=== PATIENT | female | born 1990 | race Two or more races ===

== ENCOUNTER → 2024-12-04 | Outpatient (CLI) | payer BC, SELFPAY ==
[2024-12-04 16:52] LABS: Beta HCG,Quantitative 9518 mIU/mL (<5.0)
== END | disposition home or self-care (01) ==
LOC: COPL 14:49
PROVIDERS: PCP Physician Assistant; Referring Provider Physician Assistant; Visit Provider Physician Assistant
DX: Z32.01 Encounter for pregnancy test, result positive (principal)
CPT/HCPCS: 36415; 84702

== ENCOUNTER → 2024-12-07 | Outpatient (CLI) | payer BC, SELFPAY ==
[2024-12-07 12:27] LABS: HCG Titer if Positive Positive
[2024-12-07 13:19] LABS: Beta HCG,Quantitative 20706 mIU/mL (<5.0)
== END | disposition home or self-care (01) ==
LOC: COPL 11:31
PROVIDERS: PCP Physician Assistant; Referring Provider Physician Assistant; Visit Provider Physician Assistant
DX: Z32.01 Encounter for pregnancy test, result positive (principal)
CPT/HCPCS: 36415; 84702; 84703

== ENCOUNTER → 2024-12-12 | Outpatient (CLI) | payer BC, SELFPAY ==
[2024-12-12 13:32] LABS: HCG Titer if Positive Positive
[2024-12-12 14:31] LABS: Beta HCG,Quantitative 46591 mIU/mL (<5.0)
== END | disposition home or self-care (01) ==
PROVIDERS: PCP Family Medicine; Referring Provider Physician Assistant; Visit Provider Physician Assistant
DX: O00.01 Abdominal pregnancy with intrauterine pregnancy (principal)
CPT/HCPCS: 36415; 84702; 84703

== ENCOUNTER 2025-01-03 13:45 | Emergency (ER) | payer BC, SELFPAY ==
--- NOTE | 2025-01-03 | XR_ITS ---
Examination: MRI cervical spine without intravenous contrast Date and time of exam: January 03, 2025 1649 hours INDICATIONS: Patient fell 3 days ago with injury to the neck, neck pain Technique: Multiple axial and sagittal sections of the cervical spine to been obtained. T2 weighted sagittal sections, TR 3, 270, TE 117 T1-weighted sagittal sections, TR 500, TE 11 T1-weighted axial sections, TR 607, TE 12, axial sections TR 18, TE 27 and T2 weighted transverse sections, TR 3920, TE 122. Findings: Adequate alignment cervical vertebral bodies No acute cervical fracture Intact odontoid. Diffuse cervical disc desiccation No localized enlargement cervical cord No syrinx cavity C2-C3 no disc protrusion C3-C4 no disc protrusion C4-C5 no disc protrusion C5-C6 2 mm central left paracentral disc bulge C6-C7 no disc protrusion C7-T1 no disc protrusion IMPRESSION: No cervical fracture. C5-C6 2 mm central left paracentral disc bulge
--- NOTE | 2025-01-03 | XR_ITS ---
Examination: MRI brain without intravenous contrast. Date and time of exam: January 03, 2025 1625 hours INDICATIONS: Right-sided headaches beginning 3 weeks ago Technique: Multiple axial and sagittal images of the brain obtained. Siemens high-resolution 1.5 Lorelei short bore scanners utilized. Sagittal sections, T1-weighted, TR 500, TE 14, are performed. Axial sections proton-density and T2-weighted have been obtained. Inversion recovery axial images, TR 9, 260, TE 111, TI 2500. Diffusion weighted images, axial sections, TR 4800, TE 128, B value 1000 Axial sections, ADC map, TR 4800, TE 128 Findings: Enlargement of the sella turcica is not present. The optic chiasm and infundibular are not remarkable. Prepontine and interpeduncular cisterns are not enlarged. There is no localized enlargement of the medulla or myranda. Fourth ventricle and cerebellar tonsils appear normal in position. No subacute area of hemorrhage density is seen. Mass in the cerebellopontine angle region is not evident. Globes symmetrical. Orbital musculature including medial lateral rectus muscles do not exhibit abnormality. Diffusion-weighted images demonstrate no focus of restricted diffusion. Increased white matter signal not seen Mass effect upon the ventricular system is not identified. Impression: Negative for acute hemorrhage, mass effect or midline shift No acute infarct No MR findings diagnostic for demyelinating disease Mild chronic frontal ethmoid sinusitis
[2025-01-03 13:46] VITALS: BMI 23.6
[2025-01-03 13:57] VITALS: BP 126/79; PULSE 70; RESP 18; TEMP 36.8; O2SAT 99
--- NOTE | 2025-01-03 14:29 | PD.EDRME ---
Rapid Medical Screening Exam [facility] Arrival date/time: 01/03/25 13:45 34-year-old female with no known medical history presents to the emergency room with a chief complaint of neck pain and a headache x 3 days. Patient is currently 6 weeks and states she had a ground-level fall 3 days ago and her symptoms have progressively gotten worse. I have greeted and performed a focused initial assessment of this patient. A comprehensive ED assessment and evaluation of the patient, analysis of all test results, and completion of the medical decision making process will be conducted by additional ED providers. Chief Complaint: Head Injury Time Seen by Provider: 01/03/25 13:55 Vital signs: Vital Signs Temperature 98.3 F 01/03/25 13:57 Pulse Rate 70 01/03/25 13:57 Respiratory Rate 18 01/03/25 13:57 Blood Pressure 126/79 01/03/25 13:57 Pulse Oximetry (%) 99 01/03/25 13:57 Oxygen Delivery Method Room Air 01/03/25 13:57 Vital signs reviewed by provider: Yes
--- NOTE | 2025-01-03 18:15 | EDNOTE_ITS ---
ED Head Injury RME/HPI General Chief complaint: Head Injury Stated complaint: HEAD PAIN X3DAY Time Seen by Provider: 01/03/25 13:55 Arrival date/time: 01/03/25 13:45 RME / HPI RME / HPI Narrative: 34-year-old female with no known medical history presents to the emergency room with a chief complaint of neck pain and a headache x 3 days. Patient is currently 6 weeks and states she had a ground-level fall 3 days ago and her symptoms have progressively gotten worse. Patient denies any upper or lower extremity weakness denies any radiation of pain to the shoulder. Patient is ambulatory. Related Data Previous Rx's ?Medication ?Instructions ?Recorded methocarbamol 750 mg tablet 750 mg PO QID #20 tabs 10/24 (Robaxin-750) Allergies Allergy/AdvReac Type Severity Reaction Status Date / Time sulfamethoxazole (From Allergy Vomiting Verified 01/03/25 13:51 Bactrim) trimethoprim (From Bactrim) Allergy Vomiting Verified 01/03/25 13:51 Review of Systems Review of Systems Narrative Review of Systems: Review of system reviewed and within normal limits except mentioned in HPI Course Quality Measures none Orders Category Date Time Status MRI Screening NOW Care 01/03/25 14:28 Completed MR cervical spine wo con Stat Exams 01/03/25 Completed MR head/brain wo con Stat Exams 01/03/25 Completed Vital Signs Vital signs: Vital Signs Temperature 98.3 F 01/03/25 13:57 Pulse Rate 70 01/03/25 13:57 Respiratory Rate 18 01/03/25 13:57 Blood Pressure 126/79 01/03/25 13:57 Pulse Oximetry (%) 99 01/03/25 13:57 Oxygen Delivery Method Room Air 01/03/25 13:57 Head Injury MDM Narrative [facility] Narrative:: 34-year-old female with no known medical history presents to the emergency room with a chief complaint of neck pain and a headache x 3 days. Patient is currently 6 weeks and states she had a ground-level fall 3 days ago and her symptoms have progressively gotten worse. Patient denies any upper or lower extremity weakness denies any radiation of pain to the shoulder. Patient is ambulatory. MRI of the head came back unremarkable MRI of the cervical spine showed C5-C6 disc bulging otherwise unremarkable. Results discussed with the patient patient was also given a copy of her MRIs. Patient was advised to follow-up with PCP and for referral to spine surgeon. Patient agrees with the plan. Patient is ambulatory no distal neurologic deficit noted. Patient data External records reviewed:: None Clinical information provided by:: patient Social determinants that could affect healthcare access:: none Patient has the following chronic illnesses:: None How is presenting disease/condition affected by chronic disease/condition?: no chronic disease Evaluation data The following diagnostics were reviewed and interpreted by me:: radiology exam(s) Lab and/or radiology exams considered but not ordered:: None Interpretation Summary: She resulted negative Medications / Prescriptions Medications or Prescriptions considered but not ordered:: None Medication administrations:: None Consultations Consultation(s) initiated? (list below): No Diagnosis Differential diagnosis head injury: closed head injury and other (Neck pain, C5- C6 disc bulging) Most likely diagnosis given after review of the tests above:: C5-C6 disc bulging, neck pain, status post fall, Admission Indicated Admission indicated?: not indicated Admission Request Was there a request for admission?: No Disposition Plan Disposition Plan: Discharge Discharge Attestation Discharge Attestation: The patient was given an opportunity to ask questions and understood the discharge instructions. Discharge instructions specifically effects, indications for sooner follow up or return to the emergency department, and the expected course of current diagnosis. Patient condition: Stable Discharge Plan Plan Patient Disposition: HOME (Self Care) Discharge Disposition comment: stable Prescriptions/Referrals Prescriptions/Med Rec: No Action methocarbamol [Robaxin-750] 750 mg tablet 750 mg PO QID Qty: 20 0RF Referrals: Kristopher Harrison MD [Primary Care Provider] - In 1 week Problem List Clinical Impression: Bulge of cervical disc without myelopathy, Neck pain, Currently Patient/Caregiver Discharge Instructions Discharge Activity: activity as tolerated Education Materials: Cervical Disk Problems Additional Instructions: Thank you for the opportunity for serving you today. You are stable for discharged . You are advised to: Follow-up with your PCP in 1 to 2 days and ask for referral to spine surgeon Return to ED for worsening of symptoms Increase oral fluids You can take Tylenol as needed for pain Print Language: Yakut Stand Alone Forms: Leslie Award Info., Patient Portal Info Letter ELISSA Supervising Physician ELISSA Supervising Physician: MD Iza
== END 2025-01-03 18:21 | disposition home or self-care (01) ==
PROVIDERS: Emergency Provider Emergency Medicine; PCP Family Medicine
DX: O9A.211 Injury, poisoning and certain other consequences of external causes complicating pregnancy, first trimester (principal); S09.90XA Unspecified injury of head, initial encounter; M50.322 Other cervical disc degeneration at C5-C6 level; W18.30XA Fall on same level, unspecified, initial encounter; Z3A.01 Less than 8 weeks gestation of pregnancy
CPT/HCPCS: 70551; 72141; 99284

== ENCOUNTER 2025-01-16 15:23 | Outpatient (AMB) | payer BC, SELFPAY ==
[2025-01-16 15:52] VITALS: BP 125/76; PULSE 89; RESP 18; TEMP 37.1; O2SAT 97; BMI 25.2
--- NOTE | 2025-01-16 15:52 | AMB.GYNCLNOT ---
Vital Signs 01/16/25 15:52 Height 1.57 m Height Method Stated Weight 62.369 kg Weight Measurement Method Standing Scale BMI 25.2 BP 125/76 Blood Pressure Source Automatic Cuff Blood Pressure Location Right Upper Arm Position Sitting Respiration 18 Pulse 89 Pulse Source Monitor Temp 98.8 F Temp Source Temporal Artery Scan Pulse Oximetry (%) 97 Oxygen Delivery Method Room Air Allergies/Home Meds Allergies & Medications Allergies sulfamethoxazole (From Bactrim) Allergy (Verified 01/16/25 15:53) Vomiting trimethoprim (From Bactrim) Allergy (Verified 01/16/25 15:53) Vomiting Intake Visit Data Collection New Patient or Established: Established Patient (seen at [facility] within 3 years) Reason for Visit:: New OB Do You Feel Safe at Home: Yes Authorities Contacted: N/A PCP or OBGYN visit in last 3 months: Yes Pain Present Currently: No Smoking Status Smoking Status: Never smoker 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 Had epidural. 7 lbs 8 0z, Breast fed x 2 months Has anxiety, migraines, a hx of herpes and anemia Questionnaires Covid-19 Vaccine Questionnaire Has patient been vacinated for Covid-19 Have you been vacinated for Covid-19: Yes PHQ-9 PHQ-2 Over the last 2 weeks, how often have you been bothered by any of the following problems? 1. Little interest or pleasure in doing things: not at all 2. Feeling down, depressed, or hopeless: not at all Total score: 0 Depression screen completed yes Social History Living Situation History Marital Status: (Remarried. 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 from a previous relationship Tobacco History Smoking Status: Never smoker Alcohol History Alcohol Intake: Never Domestic Abuse History Do You Feel Safe at Home: Yes History of Present Illness HPI Narrative The patient is a 34 y/o who drove from [place] to see me. She is present with her new . She was scheduled as amenorrhea but knows she is and is almost 12 weeks. She reports fatigue, mild nausea and breast tenderness. Exam General General Appearance: alert, in no apparent distress, comfortable, cooperative, healthy appearing and well groomed Neck Neck exam: Present normal inspection, full ROM and trachea midline Chest Chest inspection: Present normal inspection and symmetric chest wall rise Resp Respiratory exam: Present normal lung sounds bilaterally Card Cardiovascular exam: Present regular rate, normal rhythm and normal heart sounds Abdominal Abdominal exam: Present soft and normal bowel sounds External exam: Present normal external exam Psych Psychiatric exam: Present normal affect and normal mood Skin Skin exam: Present warm, dry, intact and normal color Office Procedures OB Clinic LOC & Office Proc's Nursing/Assessment Patient Status: Initial/New Patient OB Clinic Nursing Assessment: BP Monitoring, Medication Reconciliation, Update PMH in EMR and Vital Signs OB Clinic Coordination of Care: Complex Care and Chronic Disease 1-5, Education Complex Pt/Fam, Consent,records obtained, informed consent, Lab and Imaging orders and Staff clarify orders New Patient Charge New Patient Point Assignment: 1119 New Patient Point Charge: 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 (2) Currently : Status: Inactive Qualifiers: Weeks of gestation: 12 weeks Qualified Code(s): Z3A.12 - 12 weeks gestation of (3) AMA (advanced maternal age) multigravida 35+: Status: Acute Qualifiers: Trimester: first trimester Qualified Code(s): O09.521 - Supervision of elderly multigravida, first trimester Assessment and Plan: For Level II US DR Ivan Altamirano Additional Plan Follow Up: 4 Weeks OB Ultrasound Indication Indication: Size, dates, viability OB Ultrasound Ultrasound technique: transvaginal Gestational sac assessment: Presence, location, size, shape: Live IUP with a CRL of 4.89 cm corresponding to 11 5/7 weeks and FHTs of 184
== END 2025-01-16 16:48 | disposition home or self-care (01) ==
PROVIDERS: PCP Family Medicine; Referring Provider Family Medicine; Supervising Provider Obstetrics & Gynecology; Visit Provider Obstetrics & Gynecology
DX: O09.521 Supervision of elderly multigravida, first trimester (principal); Z3A.11 11 weeks gestation of pregnancy
CPT/HCPCS: 99204; G0463

== ENCOUNTER 2025-02-18 15:21 | Outpatient (AMB) | payer BC, SELFPAY ==
[2025-02-18 15:43] VITALS: BP 115/69; PULSE 81; RESP 17; TEMP 36.8; O2SAT 98; BMI 26.2
--- NOTE | 2025-02-18 15:43 | OBCLNT_ITS ---
Vital Signs 02/18/25 15:43 Height 1.57 m Height Method Stated Weight 64.637 kg Weight Measurement Method Standing Scale BMI 26.2 BP 115/69 Blood Pressure Source Automatic Cuff Blood Pressure Location Right Upper Arm Position Sitting Respiration 17 Pulse 81 Pulse Source Monitor Temp 98.2 F Temp Source Temporal Artery Scan Pulse Oximetry (%) 98 Oxygen Delivery Method Room Air Allergies/Home Meds Allergies & Medications Allergies sulfamethoxazole (From Bactrim) Allergy (Verified 02/18/25 15:44) Vomiting trimethoprim (From Bactrim) Allergy (Verified 02/18/25 15:44) Vomiting Medication Reconciliation No Known Home Medications 02/18/25 [History Confirmed 02/18/25] Intake Visit Data Collection New Patient or Established: Established Patient (seen at [facility] within 3 years) Reason for Visit:: OBC Seen by Clinical Staff ONLY (RN/MA): No 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 1. Little interest or pleasure in doing things: not at all 2. Feeling down, depressed, or hopeless: not at all Total score: 0 PHQ-9 3. Trouble falling or staying asleep, or sleeping too much: Not at all 4. Feeling tired or having little energy: Not at all 5. Poor appetite or overeating: Not at all 6. Feeling bad about yourself - or that you are a failure or have let yourself or your family down: Not at all 7. Trouble concentrating on things, such as reading the newspaper or watching television: Not at all 8. Moving or speaking so slowly that other people could have noticed? - Or the opposite - being so fidgety or restless that you have been moving around a lot more than usual: not at all 9. Thoughts that you would be better off or of hurting yourself in some way: Not at all Total score: 0 If you checked off any problems, how difficult have these problems made it for you to do your work, take care of things at home, or get along with other people?: not difficult at all Source: Developed by Drs. Flaquito Auguste, Ruby Edwards, Ramin Rubin and colleagues, with an educational sharron from [employer]. 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. 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 She has a new father the baby this . She presents as a return OB and has no complaints. Care OB Visit Log OB Flowsheet Initial Weight: Not Recorded Date -?-?-?-?-?-?-?-?-?-?-?-?- EGA Weight BP Alb Glu CTX Pres Fundal ht FHR Mov Dilation Station Effacement Hx Notes Visit Note 02/18/25 -?-?-?-?-?-?-?-?-?-?-?-?- 16w 3d 64.637 kg 115/69 145 absent No vaginal bleeding no cramping. Patient requests a note to not be in the back with clients. Rising for NIPT. Order level 2 ultrasound. TERRY Calculator Estimated Delivery Date Method Current WG Current Estimate 08/02/25 Ultrasound #1 16w 3d Other Estimates 08/08/25 LMP (Certain) 15w 4d Comments: Patient has not done labs yet. Expected Delivery Route/Plan LMP history of . Anticipate . Specific Issue/Plans AMA ordered NIPT and level 2 ultrasound Office Procedures OB Clinic LOC & Office Proc's Nursing/Assessment Patient Status: Established Patient OB Clinic Nursing Assessment: Medication Reconciliation, Update PMH in EMR and Vital Signs OB Clinic Coordination of Care: Complex Care and Chronic Disease 1-5, Consent,records obtained, informed consent, Education Simp Pt/Fam and Staff clarify orders Special Needs: Heart tones Established Patient Charge Established Patient Point Assignment: 115 Established Patient Point Charge: EP Level 3 (80-115) Assessment & Plan Diagnosis / Problem List (1) : Status: Acute Qualifiers: Weeks of gestation: 15 weeks Qualified Code(s): Z3A.15 - 15 weeks gestation of (2) AMA (advanced maternal age) multigravida 35+: Status: Acute Qualifiers: Trimester: first trimester Qualified Code(s): O09.521 - Supervision of elderly multigravida, first trimester Assessment and Plan: Authorizing for NIPT. Level [address] Love
== END 2025-02-18 16:29 | disposition home or self-care (01) ==
LOC: HODSOBC 15:21
PROVIDERS: PCP Obstetrics & Gynecology; Referring Provider Obstetrics & Gynecology; Supervising Provider Obstetrics & Gynecology; Visit Provider Obstetrics & Gynecology
DX: O09.522 Supervision of elderly multigravida, second trimester (principal); Z3A.16 16 weeks gestation of pregnancy; Z88.1 Allergy status to other antibiotic agents; Z88.2 Allergy status to sulfonamides
CPT/HCPCS: 99213; G0463

== ENCOUNTER 2025-03-22 10:27 | Outpatient (AMB) | payer BC, SELFPAY ==
[2025-03-22 10:40] VITALS: BP 118/70; PULSE 83; RESP 17; TEMP 36.8; O2SAT 97; BMI 27.8
--- NOTE | 2025-03-22 10:40 | AMB.OBVISIT ---
Vital Signs 03/22/25 10:40 Height 1.57 m Height Method Measured Weight 68.663 kg Weight Measurement Method Standing Scale BMI 27.8 BP 118/70 Blood Pressure Source Automatic Cuff Blood Pressure Location Right Upper Arm Position Sitting Respiration 17 Pulse 83 Pulse Source Monitor Temp 98.3 F Temp Source Temporal Artery Scan Pulse Oximetry (%) 97 Oxygen Delivery Method Room Air Allergies/Home Meds Allergies & Medications Allergies sulfamethoxazole (From Bactrim) Allergy (Verified 03/22/25 10:41) Vomiting trimethoprim (From Bactrim) Allergy (Verified 03/22/25 10:41) Vomiting Medication Reconciliation No Known Home Medications 02/18/25 [History Confirmed 03/22/25] Intake Visit Data Collection New Patient or Established: Established Patient (seen at [facility] within 3 years) Reason for Visit:: OBC Consent obtained for Telemed Visit: No Seen by Clinical Staff ONLY (RN/MA): No Slumber Room Attendant Required: No Do You Feel Safe at Home: Yes Authorities Contacted: N/A PCP or OBGYN visit in last 3 months: Yes Date of Last PCP or OBGYN visit: 02/18/25 Hx Now: Yes Are you currently on any form of Control: No Pain Present Currently: No Pain Scale Used: Burton-Vee/Numerical Pain scale:: 0 Smoking Status Smoking Status: Never smoker Questionnaires Covid-19 Vaccine Questionnaire Has patient been vacinated for Covid-19 Have you been vacinated for Covid-19: Yes PHQ-9 PHQ-2 Over the last 2 weeks, how often have you been bothered by any of the following problems? 1. Little interest or pleasure in doing things: not at all PHQ-9 8. Moving or speaking so slowly that other people could have noticed? - Or the opposite - being so fidgety or restless that you have been moving around a lot more than usual: not at all Source: Developed by Drs. Flaquito Auguste, Ruby Edwards, Ramin Rubin and colleagues, with an educational sharron from [employer]. 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 Patient requests a note to not be in the back with clients. Rising for NIPT. Order level 2 ultrasound. 03/22/25 <del>?</del> 21w 0d 68.663 kg (+5662.545 g) 118/70 21 137 active No vaginal bleeding no contractions no loss of fluids. Patient has level 2 ultrasound approved [address] insurance[address] Dr. Love will call to schedule in the next week. Patient has not had labs or NIPT done yet. She will get them at [facility] in [place] this weekend. TERRY Calculator Estimated Delivery Date Method Current WG Current Estimate 08/02/25 Ultrasound #1 21w 0d Other Estimates 08/08/25 LMP (Certain) 20w 1d Expected Delivery Route/Plan 34-year-old -0-0-1 History of 15 years ago with an epidural. Anticipate . 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 Lives in [place]. New FOB this AMA: ordered NIPT and level 2 ultrasound Notes Visit Date: 03/22/25 Last Updated by: Valeria Ware (OB Clinic)MD The patient has not had her labs or NIPT drawn yet. She will get them at [facility] in [place] this weekend. Office Procedures OB Clinic LOC & Office Proc's Nursing/Assessment Patient Status: Established Patient OB Clinic Nursing Assessment: Medication Reconciliation, Update PMH in EMR and Vital Signs OB Clinic Coordination of Care: Complex Care and Chronic Disease 1-5, Consent,records obtained, informed consent, Education Simp Pt/Fam and 4+ Authorizations needed Special Needs: Heart tones Established Patient Charge Established Patient Point Assignment: 130 Established Patient Point Charge: Level 4 (174-399)
== END 2025-03-22 11:58 | disposition home or self-care (01) ==
LOC: HODSOBC 10:27
PROVIDERS: PCP Obstetrics & Gynecology; Referring Provider Obstetrics & Gynecology; Supervising Provider Obstetrics & Gynecology; Visit Provider Obstetrics & Gynecology
DX: O09.522 Supervision of elderly multigravida, second trimester (principal); Z3A.21 21 weeks gestation of pregnancy; Z88.1 Allergy status to other antibiotic agents; Z88.2 Allergy status to sulfonamides
CPT/HCPCS: 99214; G0463

== ENCOUNTER 2025-03-29 14:40 | Outpatient (CLI) | payer BC, SELFPAY ==
[2025-03-29 14:45] VITALS: BP 118/62; PULSE 89; RESP 16; TEMP 36.6
--- NOTE | 2025-03-29 14:48 | XR_ITS ---
Examination: Complete OB ultrasound greater than 14 weeks Date and time of exam: March 29, 2025 1505 hours INDICATIONS: Leg cramps and cardiac palpitations today Findings: Viable intrauterine single fetus with single amniotic sac presentation cephalic Cardiac motion 152 BPM Placenta posterior grade 1 Umbilical cord insertion 3 vessel seen Amniotic fluid index 14.5 cm Cervix 4.2 cm Ovaries obscured by bowel gas. Composite estimated gestational age based on BPD, head circumference, abdominal circumference, femur length is 21 weeks 5 days Estimated weight 434 g. Survey of intracranial anatomy, spinal anatomy, abdominal anatomy, four-chamber heart performed with no abnormalities identified. Impression: Viable intrauterine gestation cephalic presentation.
[2025-03-29 14:50] VITALS: BP 118/62; PULSE 86; PULSE 87; O2SAT 96
[2025-03-29 16:00] VITALS: BMI 28.3
[2025-03-29 16:24] LABS: Basophils # (Auto) 0.0 Thou/mm3 (0.0-0.2); Basophils % (Auto) 0 % (0-2.5); Eosinophils # (Auto) 0.3 Thou/mm3 (0.0-0.5); Eosinophils % (Auto) 3 % (0-10); Hematocrit 35.6 % (36.0-46.0); Hemoglobin 12.4 g/dL (12.0-16.0); Immature Granulocytes Auto 0.09 Thou/mm3 (0.00-0.00); Lymphocytes # (Auto) 2.2 Thou/mm3 (1.0-4.8); Lymphocytes % (Auto) 22 % (10-50); Mean Corpuscular HGB Conc 34.8 g/dl (31.0-37.0); Mean Corpuscular Hemoglobin 30.6 pg (25.0-35.0); Mean Corpuscular Volume 88 fL (80-100); Monocytes # (Auto) 0.8 Thou/mm3 (0.0-0.8); Monocytes % (Auto) 8 % (0-12); Neutrophils # (Auto) 6.4 Thou/mm3 (1.8-7.7); Neutrophils % (Auto) 65 % (37-80); Nucleated Red Blood Cell # 0.00 Thou/mm3 (0.00-0.00); Nucleated Red Blood Cell % 0 /100 WBC (0); Platelet Count 287 Thou/mm3 (140-440); RDW Standard Deviation 44.0 fL (36.4-46.3); Red Blood Count 4.05 Miln/mm3 (4.00-5.20); White Blood Count 9.8 Thou/mm3 (3.6-11.0)
[2025-03-29 16:44] LABS: Alanine Aminotransferase 12 U/L (10-49); Albumin, Serum 3.7 gm/dL (3.5-5.0); Albumin/Globulin Ratio 1.4 (1.2-2.2); Alkaline Phosphatase 89 U/L (46-116); Anion Gap 8 (7-16); Aspartate Amino Transferase 19 U/L (0-34); BUN/Creatinine Ratio 10 Ratio (12-20); Bilirubin,Total 0.3 mg/dL (0.3-1.2); Blood Urea Nitrogen 5 mg/dL (9-23); Calcium 8.8 mg/dL (8.3-10.6); Calcium (Corrected) 9.0 mg/dL (8.5-10.1); Carbon Dioxide 24.3 mMol/L (20.0-31.0); Chloride 105 mMol/L (98-107); Creatinine (Component) 0.5 mg/dL (0.6-1.3); Estimated Creatinine Clearance 144.1 mL/min (>60); Globulin 2.6 gm/dL (2.3-3.5); Glucose 95 mg/dL (74-106); Magnesium 1.4 mg/dL (1.6-2.6); Osmolality,Calculated 271 (275-295); Potassium 3.7 mMol/L (3.4-5.1); Sodium 137 mMol/L (136-145); Total Protein 6.3 gm/dL (5.7-8.2); eGFR > 60 See Note
== END 2025-03-29 18:07 | disposition home or self-care (01) ==
LOC: S4S1 14:41 → S4SX 14:42
PROVIDERS: Referring Provider Obstetrics & Gynecology; Visit Provider Obstetrics & Gynecology
DX: O26.892 Other specified pregnancy related conditions, second trimester (principal); Z3A.21 21 weeks gestation of pregnancy; R00.2 Palpitations; R25.2 Cramp and spasm
CPT/HCPCS: 36415; 76805; 80053; 83735; 85025

== ENCOUNTER → 2025-04-09 | Outpatient (CLI) | payer BC, SELFPAY ==
[2025-04-09 13:13] LABS: Alanine Aminotransferase 13 U/L (10-49); Albumin, Serum 3.8 gm/dL (3.5-5.0); Albumin/Globulin Ratio 1.7 (1.2-2.2); Alkaline Phosphatase 88 U/L (46-116); Anion Gap 10 (7-16); Aspartate Amino Transferase 19 U/L (0-34); BUN/Creatinine Ratio 18 Ratio (12-20); Bilirubin,Total 0.4 mg/dL (0.3-1.2); Blood Urea Nitrogen 9 mg/dL (9-23); Calcium 8.8 mg/dL (8.3-10.6); Calcium (Corrected) 9.0 mg/dL (8.5-10.1); Carbon Dioxide 26.2 mMol/L (20.0-31.0); Chloride 101 mMol/L (98-107); Creatinine (Component) 0.5 mg/dL (0.6-1.3); Globulin 2.3 gm/dL (2.3-3.5); Glucose 91 mg/dL (74-106); Magnesium 1.4 mg/dL (1.6-2.6); Osmolality,Calculated 272 (275-295); Potassium 4.1 mMol/L (3.4-5.1); Sodium 137 mMol/L (136-145); Total Protein 6.1 gm/dL (5.7-8.2); eGFR > 60 See Note
== END | disposition home or self-care (01) ==
LOC: COPL 11:50
PROVIDERS: PCP Student in an Organized Health Care Education/Training Program; Referring Provider Student in an Organized Health Care Education/Training Program; Visit Provider Student in an Organized Health Care Education/Training Program
DX: O00.01 Abdominal pregnancy with intrauterine pregnancy (principal); E83.42 Hypomagnesemia
CPT/HCPCS: 36415; 80053; 83735

== ENCOUNTER 2025-04-22 11:01 | Outpatient (AMB) | payer BC, SELFPAY ==
--- NOTE | 2025-04-22 11:07 | OBCLNT_ITS ---
Vital Signs 04/22/25 11:14 Height 1.57 m Height Method Stated Weight 71.214 kg Weight Measurement Method Standing Scale BMI 28.8 BP 108/63 Blood Pressure Source Automatic Cuff Blood Pressure Location Left Upper Arm Position Sitting Respiration 16 Pulse 89 Pulse Source Monitor Temp 98.1 F Temp Source Oral Pulse Oximetry (%) 97 Oxygen Delivery Method Room Air Allergies/Home Meds Allergies & Medications Allergies sulfamethoxazole (From Bactrim) Allergy (Verified 04/22/25 11:15) Vomiting trimethoprim (From Bactrim) Allergy (Verified 04/22/25 11:15) Vomiting Medication Reconciliation magnesium oxide 400 mg PO QDAY 30 days #30 tabs 03/29/25 [Rx Confirmed 04/22/25] vitamin-ferrous fumarate 28 mg iron-folic acid 800 mcg tablet ( Tablet) 1 tab PO QDAY 03/29/25 [History Confirmed 04/22/25] Intake Visit Data Collection New Patient or Established: Established Patient (seen at [facility] within 3 years) Reason for Visit:: CARE Seen by Clinical Staff ONLY (RN/MA): No Chief Executive Or Managing Director Required: No Do You Feel Safe at Home: Yes Authorities Contacted: N/A PCP or OBGYN visit in last 3 months: Yes Hx Now: Yes Are you currently on any form of Control: No Pain Present Currently: No Pain Scale Used: Burton-Vee/Numerical Pain scale:: 0 Smoking Status Smoking Status: Never smoker Questionnaires Covid-19 Vaccine Questionnaire Has patient been vacinated for Covid-19 Have you been vacinated for Covid-19: Yes PHQ-9 PHQ-2 Over the last 2 weeks, how often have you been bothered by any of the following problems? 1. Little interest or pleasure in doing things: not at all 2. Feeling down, depressed, or hopeless: not at all Total score: 0 PHQ-9 3. Trouble falling or staying asleep, or sleeping too much: Not at all 4. Feeling tired or having little energy: Not at all 5. Poor appetite or overeating: Not at all 6. Feeling bad about yourself - or that you are a failure or have let yourself or your family down: Not at all 7. Trouble concentrating on things, such as reading the newspaper or watching television: Not at all 8. Moving or speaking so slowly that other people could have noticed? - Or the opposite - being so fidgety or restless that you have been moving around a lot more than usual: not at all 9. Thoughts that you would be better off or of hurting yourself in some way: Not at all Total score: 0 Source: Developed by Drs. Flaquito Auguste, Ruby Edwards, Ramin Rubin and colleagues, with an educational sharron from [employer]. 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 from a previous relationship Tobacco History Smoking Status: Never smoker Alcohol History Alcohol Intake: Never Domestic Abuse History Do You Feel Safe at Home: Yes [employer] DOCENT: Past Medical History Past Medical History: No Hx Renal Disease, No Hx Diabetes Mellitus Type 1 and No Hx Diabetes Mellitus Type 2 Care OB Visit Log OB Flowsheet Initial Weight: 63 kg Date -?-?-?-?-?-?-?-?-?-?-?-?- EGA Weight BP Alb Glu CTX Pres Fundal ht FHR Mov Dilation Station Effacement Hx Notes Visit Note 02/18/25 -?-?-?-?-?-?-?-?-?-?-?-?- 16w 3d 64.637 kg (+1636.912 g) 115/69 145 absent No vaginal bleeding no cramping. Patient requests a note to not be in the back with clients. Rising for NIPT. Order level 2 ultrasound. 03/22/25 -?-?-?-?-?-?-?-?-?-?-?-?- 21w 0d 68.663 kg (+5662.545 g) 118/70 21 137 active No vaginal bleeding no contractions no loss of fluids. Patient has leve l 2 ultrasound approved [address] insurance[address] Dr. Love will call to schedule in the next week. Patient has not had labs or NIPT done yet. She will get them at [facility] in [place] this weekend. 04/22/25 -?-?-?-?-?-?-?-?-?-?-?-?- 25w 3d 71.214 kg (+8214.002 g) 108/63 26 145 active Good movement no loss of fluids or contractions The patient call ed the office with leg cramps and palpitations. She was sent to triage. She had a normal ultrasound 03/29/2025. Her mag level was low and she was started on magnesium. Her primary increased her magnesium to 250 mg p.o. twice daily. She is still having palpitations. TERRY Calculator Estimated Delivery Date Method Current WG Current Estimate 08/02/25 Ultrasound #1 25w 3d Other Estimates 08/08/25 LMP (Certain) 24w 4d Expected Delivery Route/Plan 34-year-old -0-0-1 History of 15 years ago with an epidural. Anticipate . 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 Lives in [place]. 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 Is scheduled for level 2 ultrasound today. Notes Visit Date: 04/22/25 Last Updated by: Valeria Ware (OB Clinic)MD Patient's labs are back and on the chart from [facility] in [place]: O+/antibody negative/rubella nonimmune/RPR nonreactive/hepatitis B surface antigen negative/HIV negative/hemoglobin A1c 4.8/urine culture negative/hemoglobin normal at 12.6 /GC chlamydia negative NIPT 46XX. Patient does not know the gender. Will refer to cardiology for the palpitations. Check TSH CBC iron B12 levels. Patient kathleen vegetarian. Visit Date: 03/22/25 Last Updated by: Valeria Ware (OB Clinic)MD The patient has not had her labs or NIPT drawn yet. She will get them at [facility] in [place] this weekend. Office Procedures OB Clinic LOC & Office Proc's Nursing/Assessment Patient Status: Established Patient OB Clinic Nursing Assessment: Medication Reconciliation, Update PMH in EMR and Vital Signs OB Clinic Coordination of Care: AMA, Complex Care and Chronic Disease 1-5, Consent,records obtained, informed consent, Education Simp Pt/Fam, Lab and Imaging orders, Results/Orders obtained and Staff clarify orders Special Needs: Heart tones Established Patient Charge Established Patient Point Assignment: 155 Established Patient Point Charge: EP Level 4 (120-155)
[2025-04-22 11:14] VITALS: BP 108/63; PULSE 89; RESP 16; TEMP 36.7; O2SAT 97; BMI 28.8
== END 2025-04-22 11:26 | disposition home or self-care (01) ==
LOC: HODSOBC 11:01
PROVIDERS: Supervising Provider Obstetrics & Gynecology; Visit Provider Obstetrics & Gynecology
DX: O09.522 Supervision of elderly multigravida, second trimester (principal); Z3A.25 25 weeks gestation of pregnancy; O09.892 Supervision of other high risk pregnancies, second trimester; O99.891 Other specified diseases and conditions complicating pregnancy; R00.2 Palpitations; O99.282 Endocrine, nutritional and metabolic diseases complicating pregnancy, second trimester; E83.42 Hypomagnesemia; Z88.1 Allergy status to other antibiotic agents; Z88.2 Allergy status to sulfonamides
CPT/HCPCS: 99214; G0463

== ENCOUNTER → 2025-04-29 | Outpatient (CLI) | payer BC, SELFPAY ==
[2025-04-29 12:28] LABS: Magnesium 1.8 mg/dL (1.6-2.6)
== END | disposition home or self-care (01) ==
LOC: COPL 11:40
PROVIDERS: PCP Student in an Organized Health Care Education/Training Program; Referring Provider Student in an Organized Health Care Education/Training Program; Visit Provider Student in an Organized Health Care Education/Training Program
DX: E83.42 Hypomagnesemia (principal)
CPT/HCPCS: 36415; 83735

== ENCOUNTER 2025-05-24 10:01 | Outpatient (AMB) | payer BC, SELFPAY ==
--- NOTE | 2025-05-24 10:11 | AMB.OBVISIT ---
Vital Signs 05/24/25 10:15 Height 1.57 m Height Method Stated Weight 74.049 kg Weight Measurement Method Standing Scale BMI 30.0 BP 108/69 Blood Pressure Source Automatic Cuff Blood Pressure Location Left Upper Arm Position Sitting Respiration 16 Pulse 80 Pulse Source Monitor Temp 97.2 F Temp Source Oral Pulse Oximetry (%) 97 Oxygen Delivery Method Room Air Allergies/Home Meds Allergies & Medications Allergies sulfamethoxazole (From Bactrim) Allergy (Verified 05/24/25 10:16) Vomiting trimethoprim (From Bactrim) Allergy (Verified 05/24/25 10:16) Vomiting Medication Reconciliation magnesium oxide 400 mg PO QDAY 30 days #30 tabs 03/29/25 [Rx Confirmed 05/24/25] vitamin-ferrous fumarate 28 mg iron-folic acid 800 mcg tablet ( Tablet) 1 tab PO QDAY 03/29/25 [History Confirmed 05/24/25] Intake Visit Data Collection New Patient or Established: Established Patient (seen at [facility] within 3 years) Reason for Visit:: OBC Seen by Clinical Staff ONLY (RN/MA): No Oncology Account Specialist Required: No Do You Feel Safe at Home: Yes Authorities Contacted: N/A PCP or OBGYN visit in last 3 months: Yes Date of Last PCP or OBGYN visit: 04/22/25 Hx Now: Yes Are you currently on any form of Control: No Pain Present Currently: No Pain Scale Used: Burton-Vee/Numerical Pain scale:: 0 Smoking Status Smoking Status: Never smoker Questionnaires Covid-19 Vaccine Questionnaire Has patient been vacinated for Covid-19 Have you been vacinated for Covid-19: Yes PHQ-9 PHQ-2 Over the last 2 weeks, how often have you been bothered by any of the following problems? 1. Little interest or pleasure in doing things: not at all 2. Feeling down, depressed, or hopeless: not at all Total score: 0 PHQ-9 3. Trouble falling or staying asleep, or sleeping too much: Not at all 4. Feeling tired or having little energy: Not at all 5. Poor appetite or overeating: Not at all 6. Feeling bad about yourself - or that you are a failure or have let yourself or your family down: Not at all 7. Trouble concentrating on things, such as reading the newspaper or watching television: Not at all 8. Moving or speaking so slowly that other people could have noticed? - Or the opposite - being so fidgety or restless that you have been moving around a lot more than usual: not at all 9. Thoughts that you would be better off or of hurting yourself in some way: Not at all Total score: 0 If you checked off any problems, how difficult have these problems made it for you to do your work, take care of things at home, or get along with other people?: not difficult at all Source: Developed by Drs. Flaquito Auguste, Ruby Edwards, Ramin Rubin and colleagues, with an educational sharron from [employer]. 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 Patient requests a note to not be in the back with clients. Rising for NIPT. Order level 2 ultrasound. 03/22/25 <del>?</del> 21w 0d 68.663 kg (+5662.545 g) 118/70 21 137 active No vaginal bleeding no contractions no loss of fluids. Patient has level 2 ultrasound approved through insurance. Dr. Love will call to schedule in the next week. Patient has not had labs or NIPT done yet. She will get them at [email or web address] in [place] this weekend. 04/22/25 <del>?</del> 25w 3d 71.214 kg (+8214.002 g) 108/63 26 145 active Good movement no loss of fluids or contractions The patient called the office with leg cramps and palpitations. She was sent to triage. She had a normal ultrasound 03/29/2025. Her mag level was low and she was started on magnesium. Her primary increased her magnesium to 250 mg p.o. twice daily. She is still having palpitations. 05/24/25 <del>?</del> 30w 0d 74.049 kg (+11.049 kg) 108/69 occasional 32 135 active +FM, No UCs or VB Patient awaiting referral to table games manager for palpitations. TERRY Calculator Estimated Delivery Date Method Current WG Current Estimate 08/02/25 Ultrasound #1 30w 0d Other Estimates 08/08/25 LMP (Certain) 29w 1d Expected Delivery Route/Plan 34-year-old -0-0-1 History of 15 years ago with an epidural. Anticipate . 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 Normal Level II us Dr Love04/30/25 on chart Notes Visit Date: 05/24/25 Last Updated by: Valeria Ware (OB Clinic)MD Normal level [address] Love. Calcium B12 phosphorus and all labs normal for palpitations. Thyroid normal. Reviewed with patient. Visit Date: 04/22/25 Last Updated by: Valeria Ware (OB Clinic)MD Patient's labs are back and on the chart from [facility] in [place]: O+/antibody negative/rubella nonimmune/RPR nonreactive/hepatitis B surface antigen negative/HIV negative/hemoglobin A1c 4.8/urine culture negative/hemoglobin normal at 12.6 /GC chlamydia negative NIPT 46XX. Patient does not know the gender. Will refer to cardiology for the palpitations. Check TSH CBC iron B12 levels. Patient kathleen vegetarian. Visit Date: 03/22/25 Last Updated by: Valeria Ware (OB Clinic)MD The patient has not had her labs or NIPT drawn yet. She will get them at [facility] [[email or web address] in [place] this weekend. Office Procedures OB Clinic LOC & Office Proc's Nursing/Assessment Patient Status: Established Patient OB Clinic Nursing Assessment: Medication Reconciliation, Update PMH in EMR and Vital Signs OB Clinic Coordination of Care: Education Complex Pt/Fam, Consent,records obtained, informed consent, Lab and Imaging orders, Results/Orders obtained and Staff clarify orders Special Needs: Heart tones Established Patient Charge Established Patient Point Assignment: 115 Established Patient Point Charge: EP Level 3 (80-115) Assessment & Plan Diagnosis / Problem List (1) Heart palpitations: Status: Acute Plan: Refer to table games manager. Patient not seen yet. (2) AMA (advanced maternal age) multigravida 35+: Status: Acute Qualifiers: Trimester: first trimester Qualified Code(s): O09.521 - Supervision of elderly multigravida, first trimester Plan: Normal level 2 ultrasound, normal NIPT. (3) : Status: Acute Qualifiers: Weeks of gestation: 30 weeks Qualified Code(s): Z3A.30 - 30 weeks gestation of
[2025-05-24 10:15] VITALS: BP 108/69; PULSE 80; RESP 16; TEMP 36.2; O2SAT 97
== END 2025-05-24 10:50 | disposition home or self-care (01) ==
LOC: HODSOBC 10:01
PROVIDERS: PCP Student in an Organized Health Care Education/Training Program; Referring Provider Student in an Organized Health Care Education/Training Program; Supervising Provider Obstetrics & Gynecology; Visit Provider Obstetrics & Gynecology
DX: O09.523 Supervision of elderly multigravida, third trimester (principal); O09.893 Supervision of other high risk pregnancies, third trimester; O99.891 Other specified diseases and conditions complicating pregnancy; R00.2 Palpitations; Z3A.25 25 weeks gestation of pregnancy
CPT/HCPCS: 99213; G0463

== ENCOUNTER 2025-06-05 10:00 | Outpatient (AMB) | payer BC, SELFPAY ==
[2025-06-05 10:14] VITALS: BP 114/64; PULSE 78; RESP 16; TEMP 36.7; O2SAT 97
--- NOTE | 2025-06-05 10:14 | OBCLNT_ITS ---
Vital Signs 06/05/25 10:14 Height 1.57 m Height Method Stated Weight 74.049 kg Weight Measurement Method Standing Scale BMI 30.0 BP 114/64 Blood Pressure Source Automatic Cuff Blood Pressure Location Left Upper Arm Position Sitting Respiration 16 Pulse 78 Pulse Source Monitor Temp 98.1 F Temp Source Oral Pulse Oximetry (%) 97 Oxygen Delivery Method Room Air Allergies/Home Meds Allergies & Medications Allergies sulfamethoxazole (From Bactrim) Allergy (Verified 06/05/25 10:15) Vomiting trimethoprim (From Bactrim) Allergy (Verified 06/05/25 10:15) Vomiting Medication Reconciliation magnesium oxide 400 mg PO QDAY 30 days #30 tabs 03/29/25 [Rx Confirmed 06/05/25] vitamin-ferrous fumarate 28 mg iron-folic acid 800 mcg tablet ( Tablet) 1 tab PO QDAY 03/29/25 [History Confirmed 06/05/25] Intake Visit Data Collection New Patient or Established: Established Patient ([facility]) Reason for Visit:: CARE Seen by Clinical Staff ONLY (RN/MA): No Speech Language Pathologist Assistant Required: No Do You Feel Safe at Home: Yes Authorities Contacted: N/A PCP or OBGYN visit in last 3 months: Yes Hx Now: Yes Are you currently on any form of Control: No Pain Present Currently: No Pain Scale Used: Burton-Vee/Numerical Pain scale:: 0 Smoking Status Smoking Status: Never smoker Questionnaires Covid-19 Vaccine Questionnaire Has patient been vacinated for Covid-19 Have you been vacinated for Covid-19: Yes PHQ-9 PHQ-2 Over the last 2 weeks, how often have you been bothered by any of the following problems? 1. Little interest or pleasure in doing things: not at all 2. Feeling down, depressed, or hopeless: not at all Total score: 0 PHQ-9 3. Trouble falling or staying asleep, or sleeping too much: Not at all 4. Feeling tired or having little energy: Not at all 5. Poor appetite or overeating: Not at all 6. Feeling bad about yourself - or that you are a failure or have let yourself or your family down: Not at all 7. Trouble concentrating on things, such as reading the newspaper or watching television: Not at all 8. Moving or speaking so slowly that other people could have noticed? - Or the opposite - being so fidgety or restless that you have been moving around a lot more than usual: not at all 9. Thoughts that you would be better off or of hurting yourself in some way: Not at all Total score: 0 Source: Developed by Drs. Flaquito Auguste, Ruby Edwards, Ramin Rubin and colleagues, with an educational sharron from [employer]. 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 Patient requests a note to not be in the back with clients. Rising for NIPT. Order level 2 ultrasound. 03/22/25 -?-?-?-?-?-?-?-?-?-?-?-?- 21w 0d 68.663 kg (+5662.545 g) 118/70 21 137 active No vaginal bleeding no contractions no loss of fluids. Patient has leve l 2 ultrasound approved [address] insurance[address] Dr. Love will call to schedule in the next week. Patient has not had labs or NIPT done yet. She will get them at [facility] in [place] this weekend. 04/22/25 -?-?-?-?-?-?-?--?-?-?-?-?- 25w 3d 71.214 kg (+8214.002 g) 108/63 26 145 active Good movement no loss of fluids or contractions The patient call ed the office with leg cramps and palpitations. She was sent to triage. She had a normal ultrasound 03/29/2025. Her mag level was low and she was started on magnesium. Her primary increased her magnesium to 250 mg p.o. twice daily. She is still having palpitations. 05/24/25 -?-?-?-?-?-?-?-?-?-?-?-?- 30w 0d 74.049 kg (+11.049 kg) 108/69 occasional 32 135 active +FM, No UCs or VB Patient awaiting referral to log haul chain feeder for palpitations. 06/05/25 -?-?-?-?-?-?-?-?-?-?-?-?- 31w 5d 74.049 kg (+11.049 kg) 114/64 occasional 32 145 active Good movement no contractions no loss of fluids P alpitations better. Still trying to get into see cardiology. Will get flu shot at work TERRY Calculator Estimated Delivery Date Method Current WG Current Estimate 08/02/25 Ultrasound #1 31w 5d Other Estimates 08/08/25 LMP (Certain) 30w 6d Expected Delivery Route/Plan 34-year-old -0-0-1 History of 15 years ago with an epidural. Anticipate . 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 Normal Level II us Dr Love04/30/25 on chart Notes Visit Date: 06/05/25 Last Updated by: Valeria Ware (OB Clinic)MD Will get flu shot at work. Tdap today. Will get glucose challenge test at [facility] over the weekend. Visit Date: 05/24/25 Last Updated by: Valeria Ware (OB Clinic)MD Normal level [address] Love. Calcium B12 phosphorus and all labs normal for palpitations. Thyroid normal. Reviewed with patient. Visit Date: 04/22/25 Last Updated by: Valeria Ware (OB Clinic)MD Patient's labs are back and on the chart from [facility] in [place]: O+/antibody negative/rubella nonimmune/RPR nonreactive/hepatitis B surface antigen negative/HIV negative/hemoglobin A1c 4.8/urine culture negative/hemoglobin normal at 12.6 /GC chlamydia negative NIPT 46XX. Patient does not know the gender. Will refer to cardiology for the palpitations. Check TSH CBC iron B12 levels. Patient kathleen vegetarian. Visit Date: 03/22/25 Last Updated by: Valeria Ware (OB Clinic)MD The patient has not had her labs or NIPT drawn yet. She will get them at [facility] in [place] this weekend. Office Procedures OBC Clinic LOC & Office Proc's Nursing/Assessment Patient Status: Established Patient OB Clinic Nursing Assessment: Medication Reconciliation, Update PMH in EMR and Vital Signs OB Clinic Coordination of Care: AMA, Complex Care and Chronic Disease 1-5, Consent,records obtained, informed consent, Education Simp Pt/Fam, Lab and Imaging orders, Results/Orders obtained and Staff clarify orders Special Needs: Heart tones Established Patient Charge Established Patient Point Assignment: 155 Established Patient Point Charge: EP Level 4 (120-155) Injection/Vaccine Admin SQ Im Injection: Yes Immunizations diphth,pertus(acell),tetanus 2.5 Lf unit-8 mcg-5 Lf/0.5mL IM syringe Performing Provider: Valeria Ware (OB Clinic)MD Performing Location: [facility] Administered by: Yolanda Mercado MA on 06/05/25 10:51 Dose Route Admin Location Dispensed Lot Number Expiration Date Pack age [facility] Director Of Physical Education 0.5 mL IM Right Deltoid 0.5 mL [id number] 08/02/27 88811-806-84 [id number] Mention Mobile VIS Given Date VIS Provided VIS Publication Date 06/05/25 Single Vaccine 24 Eligibility Eligibility Date Funding Source Public Non-[facility] Assessment & Plan Diagnosis / Problem List (1) : Status: Acute Qualifiers: Weeks of gestation: 32 weeks Qualified Code(s): Z3A.32 - 32 weeks gestation of Plan: GCT at [facility]. Tdap today. Patient will get flu shot with her work. (2) AMA (advanced maternal age) multigravida 35+: Status: Acute Qualifiers: Trimester: first trimester Qualified Code(s): O09.521 - Supervision of elderly multigravida, first trimester
== END 2025-06-05 10:51 | disposition home or self-care (01) ==
LOC: HODSOBC 10:00
PROVIDERS: Supervising Provider Obstetrics & Gynecology; Visit Provider Obstetrics & Gynecology
DX: O09.523 Supervision of elderly multigravida, third trimester (principal); Z3A.31 31 weeks gestation of pregnancy; Z23 Encounter for immunization; Z88.1 Allergy status to other antibiotic agents; Z88.2 Allergy status to sulfonamides
CPT/HCPCS: 90471; 90715; 96372; 99214; G0463

== ENCOUNTER 2025-06-21 09:37 | Outpatient (AMB) | payer BC, SELFPAY ==
--- NOTE | 2025-06-21 10:10 | OBCLNT_ITS ---
Vital Signs 06/21/25 10:20 Height 1.57 m Height Method Stated Weight 75.41 kg Weight Measurement Method Standing Scale BMI 30.6 BP 112/71 Blood Pressure Source Automatic Cuff Blood Pressure Location Left Upper Arm Position Sitting Respiration 16 Pulse 85 Pulse Source Monitor Temp 97.9 F Temp Source Oral Pulse Oximetry (%) 96 Oxygen Delivery Method Room Air Allergies/Home Meds Allergies & Medications Allergies sulfamethoxazole (From Bactrim) Allergy (Verified 06/21/25 10:21) Vomiting trimethoprim (From Bactrim) Allergy (Verified 06/21/25 10:21) Vomiting Medication Reconciliation magnesium oxide 400 mg PO QDAY 30 days #30 tabs 03/29/25 [Rx Confirmed 06/21/25] vitamin-ferrous fumarate 28 mg iron-folic acid 800 mcg tablet ( Tablet) 1 tab PO QDAY 03/29/25 [History Confirmed 06/21/25] Intake Visit Data Collection New Patient or Established: Established Patient (seen at [facility] within 3 years) Reason for Visit:: CARE Seen by Clinical Staff ONLY (RN/MA): No Medical Practitioners Required: No Do You Feel Safe at Home: Yes Authorities Contacted: N/A PCP or OBGYN visit in last 3 months: Yes Hx Now: Yes Are you currently on any form of Control: No Pain Present Currently: No Pain Scale Used: Burton-Vee/Numerical Pain scale:: 0 Smoking Status Smoking Status: Never smoker Questionnaires Covid-19 Vaccine Questionnaire Has patient been vacinated for Covid-19 Have you been vacinated for Covid-19: Yes PHQ-9 PHQ-2 Over the last 2 weeks, how often have you been bothered by any of the following problems? 1. Little interest or pleasure in doing things: more than half the days 2. Feeling down, depressed, or hopeless: nearly every day Total score: 5 PHQ-9 3. Trouble falling or staying asleep, or sleeping too much: Not at all 4. Feeling tired or having little energy: Several days 5. Poor appetite or overeating: Not at all 6. Feeling bad about yourself - or that you are a failure or have let yourself or your family down: Nearly every day 7. Trouble concentrating on things, such as reading the newspaper or watching television: Not at all 8. Moving or speaking so slowly that other people could have noticed? - Or the opposite - being so fidgety or restless that you have been moving around a lot more than usual: not at all 9. Thoughts that you would be better off or of hurting yourself in some way: Not at all Total score: 9.0 If you checked off any problems, how difficult have these problems made it for you to do your work, take care of things at home, or get along with other people?: extremely difficult Source: Developed by Drs. Flaquito Auguste, Ruby Edwards, Ramin Rubin and colleagues, with an educational sharron from [employer]. 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 Patient requests a note to not be in the back with clients. Rising for NIPT. Order level 2 ultrasound. 03/22/25 -?-?-?-?-?-?-?-?-?-?-?-?- 21w 0d 68.663 kg (+5662.545 g) 118/70 21 137 active No vaginal bleeding no contractions no loss of fluids. Patient has leve l 2 ultrasound approved [address] insurance[address] Love will call to schedule in the next week. Patient has not had labs or NIPT done yet. She will get them at [facility] in [place] this weekend. 04/22/25 -?-?-?-?-?-?-?-?-?-?-?-?- 25w 3d 71.214 kg (+8214.002 g) 108/63 26 145 active Good movement no loss of fluids or contractions The patient call ed the office with leg cramps and palpitations. She was sent to triage. She had a normal ultrasound 03/29/2025. Her mag level was low and she was started on magnesium. Her primary increased her magnesium to 250 mg p.o. twice daily. She is still having palpitations. 05/24/25 -?-?-?-?-?-?-?-?-?-?-?-?- 30w 0d 74.049 kg (+11.049 kg) 108/69 occasional 32 135 active +FM, No UCs or VB Patient awaiting referral to lance crewmember for palpitations. 06/05/25 -?-?-?-?-?-?-?-?-?-?-?-?- 31w 5d 74.049 kg (+11.049 kg) 114/64 occasional 32 145 active Good movement no contractions no loss of fluids P alpitations better. Still trying to get into see cardiology. Will get flu shot at work 06/21/25 -?-?-?-?-?-?-?-?-?-?-?-?- 34w 0d 75.41 kg (+12.41 kg) 112/71 occasional 34 134 active Good movement no contractions no loss of fluids G roup B strep next visit. TERRY Calculator Estimated Delivery Date Method Current WG Current Estimate 08/02/25 Ultrasound #1 34w 1d Other Estimates 08/08/25 LMP (Certain) 33w 2d Expected Delivery Route/Plan 34-year-old -0-0-1 History of 15 years ago with an epidural. Anticipate . 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 Lives in [place]. 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 Normal Level II us Dr Love04/30/25 on chart Notes Visit Date: 06/05/25 Last Updated by: Valeria Ware (OB Clinic)MD Will get flu shot at work. Tdap today. Will get glucose challenge test at [facility] over the weekend. Visit Date: 05/24/25 Last Updated by: Valeria Ware (OB Clinic)MD Normal level [address] Love. Calcium B12 phosphorus and all labs normal for palpitations. Thyroid normal. Reviewed with patient. Visit Date: 04/22/25 Last Updated by: Valeria Ware (OB Clinic)MD Patient's labs are back and on the chart from [facility] in [place]: O+/antibody negative/rubella nonimmune/RPR nonreactive/hepatitis B surface antigen negative/HIV negative/hemoglobin A1c 4.8/urine culture negative/hemoglobin normal at 12.6 /GC chlamydia negative NIPT 46XX. Patient does not know the gender. Will refer to cardiology for the palpitations. Check TSH CBC iron B12 levels. Patient kathleen vegetarian. Visit Date: 03/22/25 Last Updated by: Valeria Ware (OB Clinic)MD The patient has not had her labs or NIPT drawn yet. She will get them at [facility] in [place] this weekend. Office Procedures OBC Clinic LOC & Office Proc's Nursing/Assessment Patient Status: Established Patient OB Clinic Nursing Assessment: Medication Reconciliation, Update PMH in EMR and Vital Signs OB Clinic Coordination of Care: AMA, Complex Care and Chronic Disease 1-5, Consent,records obtained, informed consent, Education Simp Pt/Fam, 1 Ins Authorization, Lab and Imaging orders, Results/Orders obtained and Staff clarify orders Special Needs: Heart tones Established Patient Charge Established Patient Point Assignment: 170 Established Patient Point Charge: EP Level 5 (160-above) Assessment & Plan Diagnosis / Problem List (1) AMA (advanced maternal age) multigravida 35+: Status: Acute Qualifiers: Trimester: first trimester Qualified Code(s): O09.521 - Supervision of elderly multigravida, first trimester (2) : Status: Acute Qualifiers: Weeks of gestation: 34 weeks Qualified Code(s): Z3A.34 - 34 weeks gestation of Plan: Group B strep next visit. Kick counts labor precautions.
[2025-06-21 10:20] VITALS: BP 112/71; PULSE 85; RESP 16; TEMP 36.6; O2SAT 96; BMI 30.6
== END 2025-06-21 10:59 | disposition home or self-care (01) ==
LOC: HODSOBC 09:37
PROVIDERS: Supervising Provider Obstetrics & Gynecology; Visit Provider Obstetrics & Gynecology
DX: O09.523 Supervision of elderly multigravida, third trimester (principal); Z3A.34 34 weeks gestation of pregnancy
CPT/HCPCS: 99215; G0463

== ENCOUNTER → 2025-06-26 | Outpatient (CLI) | payer BC, SELFPAY ==
--- NOTE | 2025-06-26 11:00 | XR_ITS ---
Examination: Complete OB ultrasound greater than 14 weeks Date and time of exam: June 26, 2025, 1110 hours INDICATIONS: Diagnosis advanced maternal age Findings: Viable intrauterine single fetus with single amniotic sac presentation cephalic Cardiac motion 144 bpm Placenta fundal anterior grade 3 Medical cord insertion 3 vessels seen Amniotic fluid index 11.6 cm Cervix 4.1 cm Right ovary obscured by bowel gas Left ovary 2.7 cm arterial flow. Composite estimated gestational age based on BPD, head circumference, abdominal circumference, femur length is 34 weeks 2 days Estimated weight 2394 g. Survey of intracranial anatomy, spinal anatomy, abdominal anatomy, four-chamber heart performed with no abnormalities identified. Impression: Viable intrauterine gestation in cephalic presentation.
== END | disposition home or self-care (01) ==
LOC: CDIM 10:55
PROVIDERS: PCP Family Medicine; Referring Provider Obstetrics & Gynecology; Visit Provider Obstetrics & Gynecology
DX: O09.521 Supervision of elderly multigravida, first trimester (principal); Z3A.34 34 weeks gestation of pregnancy
CPT/HCPCS: 76805

== ENCOUNTER 2025-09-03 13:46 | Outpatient (AMB) | payer BC, SELFPAY ==
[2025-09-03 14:02] VITALS: BP 150/67; PULSE 71; RESP 18; TEMP 36.2; O2SAT 98; BMI 26.1
--- NOTE | 2025-09-03 14:04 | AMB.OBPP ---
Vital Signs 09/03/25 14:02 09/03/25 14:05 Height 1.57 m Height Method Stated Weight 64.41 kg Weight Measurement Method Standing Scale BMI 26.1 BP 150/67 H 150/67 H Blood Pressure Source Automatic Cuff Blood Pressure Location Left Upper Arm Position Sitting Respiration 18 18 Pulse 71 71 Pulse Source Monitor Temp 97.2 F 97.2 F Temp Source Oral Pulse Oximetry (%) 98 98 Oxygen Delivery Method Room Air Allergies/Home Meds Allergies & Medications Allergies sulfamethoxazole (From Bactrim) Allergy (Verified 09/03/25 14:04) Vomiting trimethoprim (From Bactrim) Allergy (Verified 09/03/25 14:04) Vomiting Medication Reconciliation magnesium oxide 400 mg PO QDAY 30 days #30 tabs 03/29/25 [Rx Confirmed 09/03/25] vitamin-ferrous fumarate 28 mg iron-folic acid 800 mcg tablet ( Tablet) 1 tab PO QDAY 03/29/25 [History Confirmed 09/03/25] sertraline 25 mg tablet (Zoloft) 25 mg PO QDAY #60 tabs 09/03/25 [Rx] Intake Visit Data Collection New Patient or Established: Established Patient (seen at [facility] within 3 years) Reason for Visit:: PP Seen by Clinical Staff ONLY (RN/MA): No Digital Art Director Required: No Do You Feel Safe at Home: Yes Authorities Contacted: N/A PCP or OBGYN visit in last 3 months: Yes Date of Last PCP or OBGYN visit: 06/05/25 Hx Now: No Are you currently on any form of Control: No Pain Present Currently: No Pain Scale Used: Burton-Vee/Numerical Pain scale:: 0 Smoking Status Smoking Status: Never smoker Immunizations Flu Vaccine in the Last 12 Months: Yes Flu Vaccine Exclusion Criteria: Already 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 from a previous relationship Tobacco History Smoking Status: Never smoker Second Hand Smoke Exposure: No Alcohol History Alcohol Intake: Never Domestic Abuse History Do You Feel Safe at Home: Yes EPDS - PP Depression Screening [place] Pospartum Depression Screen I have been able to laugh and see the funny side of things: (0) As much as I always could I have looked forward with enjoyment to things: (0) As much as I ever did I have blamed myself unnecessarily when things went wrong: (0) No, never I have been anxious or worried for no good reason: (0) No, not at all I have felt scared or panicky for no very good reason: (0) No, not at all Things have been getting on top of me: (0) No, I have been coping as well as ever I have been so unhappy that I have had difficulty sleeping: (0) No, not at all I have felt sad or miserable: (0) No, not at all I have been so unhappy that I have been crying: (0) No, never The thought of harming myself has occurred to me: (0) Never Total Score: EPDS Score: Referral is indicated for score of 9 or more, suicidal, or if provider believes patient is depressed regardless of score.: 0 EPDS completed yes Care OB Visit Log OB Flowsheet Initial Weight: 63 kg Date <del>?</del> EGA Weight BP Alb Glu CTX Pres Fundal ht FHR Mov Dilation Station Effacement Hx Notes Visit Note 02/18/25 <del>?</del> 16w 3d 64.637 kg (+1636.912 g) 115/69 145 absent No vaginal bleeding no cramping. Patient requests a note to not be in the back with clients. Rising for NIPT. Order level 2 ultrasound. 03/22/25 <del>?</del> 21w 0d 68.663 kg (+5662.545 g) 118/70 21 137 active No vaginal bleeding no contractions no loss of fluids. Patient has level 2 ultrasound approved [address] insurance[address] Dr. Love will call to schedule in the next week. Patient has not had labs or NIPT done yet. She will get them at [facility] in [place] this weekend. 04/22/25 <del>?</del> 25w 3d 71.214 kg (+8214.002 g) 108/63 26 145 active Good movement no loss of fluids or contractions The patient called the office with leg cramps and palpitations. She was sent to triage. She had a normal ultrasound 03/29/2025. Her mag level was low and she was started on magnesium. Her primary increased her magnesium to 250 mg p.o. twice daily. She is still having palpitations. 05/24/25 <del>?</del> 30w 0d 74.049 kg (+11.049 kg) 108/69 occasional 32 135 active +FM, No UCs or VB Patient awaiting referral to licensed therapist for palpitations. 06/05/25 <del>?</del> 31w 5d 74.049 kg (+11.049 kg) 114/64 occasional 32 145 active Good movement no contractions no loss of fluids Palpitations better. Still trying to get into see cardiology. Will get flu shot at work 06/21/25 <del>?</del> 34w 0d 75.41 kg (+12.41 kg) 112/71 occasional 34 134 active Good movement no contractions no loss of fluids Group B strep next visit. TERRY Calculator Estimated Delivery Date Method Current WG Current Estimate 08/02/25 Ultrasound #1 44w 4d Other Estimates 08/08/25 LMP (Certain) 43w 5d Expected Delivery Route/Plan 34-year-old -0-0-1 History of 15 years ago with an epidural. Anticipate . 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 Normal Level II us Dr Love04/30/25 on chart Notes Visit Date: 06/05/25 Last Updated by: Valeria Ware ([facility] Clinic)MD Will get flu shot at work. Tdap today. Will get glucose challenge test at [facility] over the weekend. Visit Date: 05/24/25 Last Updated by: Valeria Ware (OB Clinic)MD Normal level [address] Love. Calcium B12 phosphorus and all labs normal for palpitations. Thyroid normal. Reviewed with patient. Visit Date: 04/22/25 Last Updated by: Valeria Ware (OB Clinic)MD Patient's labs are back and on the chart from [facility] in [place]: O+/antibody negative/rubella nonimmune/RPR nonreactive/hepatitis B surface antigen negative/HIV negative/hemoglobin A1c 4.8/urine culture negative/hemoglobin normal at 12.6 /GC chlamydia negative NIPT 46XX. Patient does not know the gender. Will refer to cardiology for the palpitations. Check TSH CBC iron B12 levels. Patient kathleen vegetarian. Visit Date: 03/22/25 Last Updated by: Valeria Ware (OB Clinic)MD The patient has not had her labs or NIPT drawn yet. She will get them at [facility] in [place] this weekend. HPI Interval History: 35-year-old 2 para 2 for 9-week . Patient had a vaginal July 02, 2025. Patient delivered and [facility] at 35 weeks. She was induced because of a category 2 monitor baby weighed 5 pounds. And a little girl. The baby spent a week in the NICU. Mom is bottlefeeding she is not sexually active at this time. She had a period 9 days ago. She is unsure about control. She used most hormonal methods that made her wiseman. And she has a history of palpitations with the that have stopped. Patient is very tearful at the visit. I had asked her about her blood pressure being 150/67 and she told me she felt little anxious today. She is also feeling guilty she says. Patient's older child at 16 does not live with her she lives with her father and the patient is sad because that child does not live with her and her new as well. The patient reports that her does not like her older child nor does like her family. The patient does have a relationship with her older child she does not see her very much but she does make time for her and they had lunch today. The patient also says that she left her with a new baby and was staying with her mother for a while. She reports that the she lives with is not abusive to her but can make her feel guilty. She is unsure about control at this point. And reports some depression as well. [place] score: 21 Was or delivery considered high risk: Yes Delivery type: vaginal Was labor induced: yes Gestational age at delivery (weeks): 35 Delivery date: 07/02/25 Delivering provider: yessy Delivery complications: No Is patient : No Is patient sexually active: No Contraception planned: unsure Review of Systems Review of Systems ROS limited to current BUILDING SUPERINTENDENT complaints: Yes Exam Narrative Physical exam: Normal heart rate and rhythm. Lungs clear no wheezes. Abdomen is soft nontender. Uterus well involuted. Perineum is intact no lacerations. No swelling. Small lochia. Negative Homans' sign. 2+ DTRs. No edema no swelling. Breasts are soft Office Procedures OBC Clinic LOC & Office Proc's Nursing/Assessment Patient Status: Established Patient OB Clinic Nursing Assessment: Medication Reconciliation, Update PMH in EMR and Vital Signs OB Clinic Coordination of Care: Complex Care and Chronic Disease 1-5, Consent,records obtained, informed consent, Education Simp Pt/Fam, Lab and Imaging orders, Results/Orders obtained and Staff clarify orders Established Patient Charge Established Patient Point Assignment: 105 Established Patient Point Charge: EP Level 3 (80-115) Assessment & Plan Diagnosis / Problem List (1) 6 weeks follow-up: Status: Acute (2) Depression affecting , : Status: Acute Plan I talked to the patient about about depression and her feelings about her older daughter and her new baby. I advised her to make an appointment at [facility] with her nurse practitioner there. And have them schedule her with behavioral health at [facility]. Started Zoloft 25 mg daily. I talked about her may be getting having couples therapy with her new . I again and made sure she was safe where she is at and she reports that she is. Patient has good family support. We discussed about control options and so patient will think about those. So I asked her to come back for Pap and control. Discussed diet and exercise. Care Reviewed delivery summary and any complications: Yes Uterus involuted to: 4 below Perineal / incision healing noted: Yes Screened for depression: Yes Depression counseling provided: Yes Discussed family planning & contraception: Yes Contraception planned: unsure Counseling on safe resumption of sexual activity: Yes Counseling on gradual excercise: Yes Discussed and concerns (describe), provided support: No Referred to payroll tax specialist: No Counseled on good nutrition, hydration, and self care: Yes Reviewed vaccine status: No Chronic & current problems reconciled on problem list: Yes Infant care discussed; questions answered: feeding Follow up: routine/prn Additional counseling & anticipatory guidance provided: return for control, patient will schedule with provider at [facility] for deression this week
[2025-09-03 14:05] VITALS: BP 150/67; PULSE 71; RESP 18; TEMP 36.2; O2SAT 98
== END 2025-09-03 14:30 | disposition home or self-care (01) ==
LOC: HODSOBC 13:46
PROVIDERS: PCP Family Medicine; Referring Provider Family Medicine; Supervising Provider Advanced Practice Midwife; Visit Provider Advanced Practice Midwife
DX: Z39.2 Encounter for routine postpartum follow-up (principal); O99.345 Other mental disorders complicating the puerperium; F53.0 Postpartum depression; Z88.1 Allergy status to other antibiotic agents; Z88.2 Allergy status to sulfonamides
CPT/HCPCS: 99213; G0463